=== PATIENT | female | born 1980 | race Asian ===

== ENCOUNTER 2025-08-24 06:15 | Day surgery (SDC) | payer OTHER ==
[2025-08-24] MEDS ORDERED: PHENAZOPYRIDINE HCL 100 MG TABLET (FP) ONE (07:03)
[2025-08-24] MEDS: PHENAZOPYRIDINE HCL 100 MG TABLET (FP) PO ONE (07:07)
[2025-08-24] MEDS ORDERED: ACETAMINOPHEN INJECTION 100 ML ONE (07:13)
[2025-08-24] MEDS ORDERED: DEXAMETHASONE SOD PHOSPHATE 4 MG/1 ML VIAL ONE (07:23)
[2025-08-24] MEDS ORDERED: ONDANSETRON 4 MG/2 ML VIAL ONE ×2 (07:23→08:41)
[2025-08-24] MEDS ORDERED: LIDOCAINE HCL/PF 2% SDV 5ML VIAL ONE (07:23)
[2025-08-24] MEDS ORDERED: PROPOFOL 40 ML ONE (07:24)
[2025-08-24] MEDS ORDERED: MIDAZOLAM HCL 2 MG/2 ML SINGLE DOSE VIAL ONE (07:24)
[2025-08-24] MEDS ORDERED: ROCURONIUM BROMIDE 50 MG/5 ML SYRINGE ONE (07:24)
[2025-08-24] MEDS ORDERED: SUCCINYLCHOLINE CHLORIDE 200 MG/10 ML SYRINGE ONE (07:53)
[2025-08-24] MEDS ORDERED: NEOSTIGMINE METHYLSULFATE 0.5 MG/1 ML - 10 ML MDV ONE (08:41)
[2025-08-24] MEDS ORDERED: GLYCOPYRROLATE 0.2 MG/1 ML VIAL ONE (08:41)
[2025-08-24] MEDS ORDERED: ONDANSETRON 4 MG/2 ML VIAL IVPUSH PRN (09:47)
[2025-08-24] MEDS: HYDROmorphone *PCA* 10MG/50ML DISP.SYRIN PCA SCH (10:10)
[2025-08-24] MEDS: ACETAMINOPHEN 1000 MG/100 ML BAG IVPB ONE (12:48)
[2025-08-24] MEDS: LACTATED RINGERS SOLUTION 1,000 ML IV SCH (12:48)
[2025-08-24] MEDS: ENOXAPARIN NA (PORCINE) 40 MG/0.4 ML DISP.SYRIN SQ SCH (12:52)
[2025-08-24] MEDS: ACETAMINOPHEN 1000 MG/100 ML BAG IVPB SCH ×2 (12:52→14:38)
[2025-08-24] MEDS: IBUPROFEN 400 MG TABLET (FP) PO SCH (13:46)
[2025-08-24] MEDS: GABAPENTIN 300 MG CAPSULE PO SCH (14:45)
[2025-08-24] MEDS: CEFAZOLIN SODIUM 2 GM in DEXTROSE 5%-WATER 100 ML IVPB SCH (17:02)
[2025-08-24 22:43] VITALS: RESP 16
[2025-08-25] MEDS ORDERED: CEFAZOLIN SODIUM 2 GM VIAL ONE (00:58)
[2025-08-25 08:04] VITALS: BP 94/56; PULSE 71; TEMP 97.7
[2025-08-25 08:53] LABS: ABSOLUTE IMMATURE GRANULOCYTES 0.02 x10^3/uL (0.0-0.031); BASOPHILS # 0.02 x10^3/uL (0.01-0.08); EOSINOPHIL % 1.9 % (0.7-5.8); EOSINOPHILS # 0.16 x10^3/uL (0.04-0.36); MCHC 31.1 g/dl (32.2-35.5); MEAN CELL VOLUME 85.5 fl (79.4-94.8); MEAN PLT VOLUME 9.1 fl (9.4-12.3); MONOCYTE # 0.52 x10^3/uL (0.24-0.86); MONOCYTE % 6.2 % (4.7-12.5); RDW 12.6 % (12.2-17.1)
[2025-08-25 09:03] LABS: GLUCOSE,RANDOM 108.0 mg/dL (74-106)
[2025-08-25 09:04] LABS: CO2 30.0 mmol/L (21-32)
[2025-08-25 09:08] LABS: CREATININE 0.69 mg/dL (0.55-1.3)
[2025-08-25] MEDS: DOCUSATE SODIUM 100 MG CAPSULE (FP) PO SCH (10:27)
[2025-08-25] MEDS: ACETAMINOPHEN 500 MG TABLET (FP) PO SCH (12:06)
[2025-08-25] MEDS ORDERED: IBUPROFEN 600 MG TABLET (FP) PO SCH (14:00)
== END 2025-08-25 13:25 | disposition home or self-care (01) ==
LOC: JASUSAT 06:15 → J3W 11:39 → JASUSAT 08-25 13:25
PROVIDERS: ATTEND Obstetrics & Gynecology
PROC: 0UB14ZZ Excision of Left Ovary, Percutaneous Endoscopic Approach (ICD-10-PCS; 2025-08-24)
PROC: 0UT9FZZ Resection of Uterus, Via Natural or Artificial Opening With Percutaneous Endoscopic Assistance (ICD-10-PCS; principal; 2025-08-24 07:45)
PROC: 0UT7FZZ Resection of Bilateral Fallopian Tubes, Via Natural or Artificial Opening With Percutaneous Endoscopic Assistance (ICD-10-PCS; 2025-08-24 07:45)
PROC: 8E0W4CZ Robotic Assisted Procedure of Trunk Region, Percutaneous Endoscopic Approach (ICD-10-PCS; 2025-08-24 07:45)
DX: N93.9 Abnormal uterine and vaginal bleeding, unspecified (principal); N83.202 Unspecified ovarian cyst, left side; N72 Inflammatory disease of cervix uteri
CPT/HCPCS: 58552; 58662; S2900; 36415; 80048; 81025; 85025; 86850; 86900; 86901; 88305-TC; 94760